=== PATIENT | male | born 1950 | race Caucasian/White ===

== ENCOUNTER 2016-04-30 01:11 | Emergency (ER) ==
[2016-04-30 01:20] VITALS: BP 193/113; TEMP 97; BMI 27.7
[2016-04-30] MEDS ORDERED: LASIX IVP STA (01:23)
[2016-04-30] MEDS ORDERED: SOLU-MEDROL 125 MG IVP STA (01:23)
[2016-04-30] MEDS ORDERED: DUONEB NEB STA (01:24)
[2016-04-30] MEDS ORDERED: DUONEB NEB ONE (01:27)
[2016-04-30 01:36] LABS: BASOPHILS # (AUTO) 0.1 K/uL (0-0.2); BASOPHILS % (AUTO) 1.1 % (0.0-3.0); EOSINOPHILS # (AUTO) 0.5 K/ul (0.0-0.7); EOSINOPHILS % (AUTO) 4.4 % (0.0-7.0); HEMATOCRIT 43.9 % (42.0-52.0); HEMOGLOBIN 14.1 g/dl (14.0-18.0); IMMATURE GRANULOCYTE % (AUTO) 0.4 % (0.0-5.0); LYMPHOCYTES # (AUTO) 2.9 K/uL (0.60-3.4); LYMPHOCYTES % (AUTO) 25.6 (10.0-50.0); MEAN CORPUSCULAR HEMOGLOBIN 31.1 pg (27.0-31.0); MEAN CORPUSCULAR HGB CONC 32.1 (31.8-35.4); MEAN CORPUSCULAR VOLUME 96.7 fl (80.0-94.0); MONOCYTES # (AUTO) 0.9 K/uL (0.4-2.0); MONOCYTES % (AUTO) 7.9 (0-10); NEUTROPHILS # (AUTO) 6.8 K/ul (2.0-6.9); NEUTROPHILS % (AUTO) 60.6; PLATELET COUNT 272 10^3/uL (140-440); RED BLOOD COUNT 4.54 10^6/ul (4.70-6.10); WHITE BLOOD COUNT 11.16 K/ul (4.2-10.2)
[2016-04-30 01:50] LABS: ABG BASE EXCESS 0 (-2.0-2.0); ABG HCO3 25.4 (22.0-26.0); ABG PCO2 42.6 mmHg (35-45); ABG PH 7.384 (7.35-7.45); ABG TCO2 27 (22.0-28.0)
--- NOTE | 2016-04-30 01:57 | ED.PDOC ---
General ED Provider: Dr. ELIANE GUTIERREZ Chief Complaint: Shortness of Air Stated Complaint: Patient is a 65 year old male how comes to the ER with complaints of extreme shortness of breath. He was voicing need for breathing treatment. He admits to eating too much this weekend of festivities. States that he is supposed to be going for dialysis in the morning. Declinie transfer to [facility]. States he still makes urine. Time Seen by Physician: 01:14 Mode of Arrival: Walk-In Information Source: Patient Exam Limitations: No limitations Primary [facility] and Triage Documentation Reviewed and Agree: Yes Respiratory Complaint Exam - Shortness of Air Complaint/Exam Onset/Duration: 1 hour Symptoms Are: Still present Timing: Constant Initial Severity: Moderate Current Severity: Severe Character: Reports: Dyspnea at rest Aggravating: Reports: URI Associated Signs and Symptoms: Reports: Cough, Wheezing History of Healthcare-Acquired Pneumonia: No Pulmonary Embolism Risk Factors: Reports: None Cardiac Risk Factors: Reports: None Pseudomonas Risk Factors: Reports: None Tuberculosis Risk Factors: Reports: None Home Oxygen Use: No Recent Stress Test: No Recent Echo/LV Function: No Respiratory Distress: Severe Stridor Present: No Tracheal Deviation: No Accessory Muscle Use: No Retractions: Not Present Diminished Breath Sounds: No Prolonged Expiratory Phase: No Unable to Speak Full Sentences: No Fatigue: No Leg Swelling: No Serafin's Sign Present: No Grunting Respirations: No Kussmaul Respirations: No Differential Diagnoses: Pulmonary Edema, Pneumonia, URI Quality Indicator For Non-Traumatic Chest Pain/Syncope: EKG Performed Review of Systems - Review Of Systems Constitutional: Reports: No symptoms Eyes: Reports: No symptoms Ears, Nose, Mouth, Throat: Reports: No symptoms Respiratory: Reports: Cough, Short of air, Wheezing Cardiac: Denies: Chest pain GI: Reports: No symptoms : Reports: No symptoms Musculoskeletal: Reports: No symptoms Skin: Reports: No symptoms Neurological: Reports: Anxiety Endocrine: Reports: No symptoms Hematologic/Lymphatic: Reports: No symptoms All Other Systems: Reviewed and Negative Past Medical History - Past Medical History Previously Healthy: Yes Endocrine: Reports: DM 2, Dyslipidemia Cardiovascular: Reports: CAD, OR, Hypertension Respiratory: Reports: Asthma Hematological: Reports: None Gastrointestinal: Reports: None Genitourinary: Reports: CKD (on dialysis ) Neuro/Psych: Reports: None Musculoskeletal: Reports: None Cancer: Reports: None - Surgical History General Surgical History: Reports: Unknown - Family History Family History: Reports: Unknown - Social History Smoking Status: Former smoker Hx Substance Use: No Alcohol Screening: None - Immunizations Tetanus Shot up to Date: Yes Physical Exam - Physical Exam Appearance: Ill-appearing Ill-appearing: Severe Eyes: LORNA, EOMI, Conjunctiva clear Neck: Supple Respiratory: Crackles, Rhonchi, Wheezes Interpretation - Radiology Interpretation Radiology Interpretation By: ED Physician Radiology Results: Positive Exam Interpreted: Other (pulmonary Edema ) - Web Ui Designer Rate: Tachy Rhythm: Sinus Ectopy: None - EKG Interpretation Time of EKG #1: 01:42 Rate: Tachy Rhythm: Sinus Ectopy: None Harriet: NL ST Segment: Normal Interpretation: sinus tachy Re-Evaluation - Re-Evaluation Time of Re-Evaluation: 03:53 Status: Improved - Re-Evaluation Time of Re-Evaluation: 06:00 Status: Improved Vital Signs Stable: Yes Critical Care Note - Critical Care Note Total Time (mins): 40 Course - Course Hematology/Chemistry: 04/30/16 01:34 04/30/16 01:34 Orders, Labs, Meds: Lab Review 04/30/16 04/30/16 01:21 01:34 WBC 11.16 H RBC 4.54 L Hgb 14.1 Hct 43.9 MCV 96.7 H MCH 31.1 H MCHC 32.1 RDW Coeff of Madelyn 17.5 H Plt Count 272 Immature Gran % (Auto) 0.4 Neut % (Auto) 60.6 Lymph % (Auto) 25.6 [place] % (Auto) 7.9 Eos % (Auto) 4.4 Baso % (Auto) 1.1 Immature Gran # (Auto) 0.1 Neut # 6.8 Lymph # 2.9 [place] # 0.9 Eos # 0.5 Baso # 0.1 Puncture Site Lr O2 Saturation 95.0 ABG pH 7.384 ABG pCO2 42.6 ABG pO2 78.0 L ABG HCO3 25.4 ABG Total CO2 27 ABG Base Excess 0 Jesse Test + O2 Delivery Device bnc Oxygen Liter Flow 3.00 FiO2 % 32.0 Sodium 139 Potassium 4.5 Chloride 93 L Carbon Dioxide 28 Anion Gap 22.5 BUN 57 H Creatinine 10.14 H* Estimated GFR (MDRD) 5.00 BUN/Creatinine Ratio 5.62 Glucose 136 H Calcium 9.7 Total Bilirubin 0.54 AST 19 ALT 14 Alkaline Phosphatase 97 Total Creatine Kinase 97 Troponin I 0.1830 B-Natriuretic Peptide 2300 H Total Protein 8.2 H Albumin 4.2 Globulin 4.0 Albumin/Globulin Ratio 1.05 Orders Category Date Time Status ABG DRAW REQUEST Stat CARDIO 04/30/16 01:21 Completed EKG-(ED ONLY) Stat CARDIO 04/30/16 01:21 Completed NEBULIZER TREATMENT Stat CARDIO 04/30/16 01:24 Completed ED INTERFACE CONTROL OFFICER APPLIED .ONCE EMERGENCY 04/30/16 01:21 Active ED IV/MEDIPORT/POWERPORT .ONCE EMERGENCY 04/30/16 01:22 Active ABG Stat LAB 04/30/16 01:21 Completed B-TYPE NATRIURETIC PEPTIDE Stat LAB 04/30/16 01:34 Completed CBC W/ AUTO DIFF Stat LAB 04/30/16 01:34 Completed COMPREHENSIVE METABOLIC PANEL Stat LAB 04/30/16 01:34 Completed CREATINE KINASE Stat LAB 04/30/16 01:34 Completed TROPONIN I Stat LAB 04/30/16 01:34 Completed 0.9 % Sodium Chloride [Saline Flush] MEDS 04/30/16 01:22 Discontinued 1 syr IVF PRN PRN Furosemide [Lasix] MEDS 04/30/16 01:23 Discontinued 60 mg IVP ONCE STA Ipratropium/Albuterol Neb [Duoneb] MEDS 04/30/16 01:27 Discontinued 1 vial NEB .STK-MED ONE Ipratropium/Albuterol Neb [Duoneb] MEDS 04/30/16 01:24 Discontinued 1 vial NEB ONCE STA Methylprednisolone Sod Succ/Pf [Solu-Medrol 125 mg] MEDS 04/30/16 01:23 Discontinued 125 mg IVP ONCE STA CHEST, 1V AP ONLY Stat RADS 04/30/16 01:21 Completed Medications Discontinued Medications Generic Name Dose Route Start Last Admin Trade Name Freq PRN Reason Stop Dose Admin Albuterol/Ipratropium 1 vial 04/30/16 01:24 04/30/16 01:52 Duoneb NEB 04/30/16 01:25 Not Given ONCE STA Furosemide 60 mg 04/30/16 01:23 04/30/16 01:32 Lasix IVP 04/30/16 01:24 60 mg ONCE STA Administration Methylprednisolone Sodium Succinate 125 mg 04/30/16 01:23 04/30/16 01:35 Solu-Medrol 125 Mg IVP 04/30/16 01:24 125 mg ONCE STA Administration Sodium Chloride 1 syr 04/30/16 01:22 04/30/16 01:35 Saline Flush IVF 1 syr PRN PRN Administration To flush IV Vital Signs: Temp Pulse Resp BP Pulse Ox 04/30/16 01:14 97 F L 140 H 32 H 193/113 H 91 L Departure - Departure Time of Disposition: 06:30 Disposition: HOME SELF-CARE Discharge Problem: Pulmonary edema Qualifiers: Chronicity: acute Qualifier Code: (J81.0) Acute pulmonary edema Instructions: Pulmonary Edema (ED) Condition: Stable Pt referred to PMD for follow-up: Yes Additional Instructions: Follow your cardiac diet. Go to dialysis this morning. Allergies/Adverse Reactions: Allergies Penicillins Adverse Reaction (Verified 04/23/16 01:38) Home Medications: Ambulatory Orders Aspirin [Aspirin Chewable] 81 mg PO DAILYWM 07/15/15 Cinacalcet HCl [Sensipar] 90 mg PO BEDTIME 07/15/15 Lidocaine/Prilocaine [Emla Cream] 1 applic TP 3 TIMES PER WEEK 07/15/15 Midodrine HCl [Midodrine] 5 mg PO 3 TIMES PER WEEK 07/15/15 Ondansetron HCl [Zofran] 4 mg PO BID PRN 07/15/15 Pravastatin Sodium [Pravachol] 20 mg PO BEDTIME 07/15/15 Sevelamer Carbonate [Renvela] 1,600 mg PO TID 07/15/15 Trazodone HCl 100 mg PO BEDTIME 07/15/15 Acetaminophen [Tylenol Extra Strength] 1,000 mg PO BID PRN 12/08/15 Clopidogrel Bisulfate [Clopidogrel] 75 mg PO DAILY #90 12/08/15 Omeprazole 20 mg PO DAILY #90 12/08/15 Disposition Discussed With: Patient
[2016-04-30 02:01] LABS: ALBUMIN 4.2 g/dL (3.4-5.0); ALBUMIN/GLOBULIN RATIO 1.05; ANION GAP 22.5; BILIRUBIN,TOTAL 0.54 mg/dL (0.00-1.20); BUN/CREATININE RATIO 5.62; CALCIUM 9.7 mg/dL (8.2-10.2); POTASSIUM 4.5 mmol/L (3.5-5.1); TOTAL PROTEIN 8.2 g/dL (5.8-8.1); TROPONIN I 0.183 ng/ml (0.0000-0.4000)
[2016-04-30 02:03] LABS: CREATININE 10.14 mg/dL (0.60-1.10)
--- NOTE | 2016-04-30 07:06 | DI ---
EXAM: One-view chest HISTORY: Shortness of breath TECHNIQUE: Single frontal view of the chest was obtained. Comparison 04/23/2016. FINDINGS: The heart is stable size. Midline sternotomy wires are seen. Diffuse interstitial opaci ties are seen throughout the lungs. There is no pleural separation. The osseous structures and med iastinal contours are normal. 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 IMPRESSION: Mild worsening of the diffuse interstitial opacities seen throughout the lungs. Findin gs may represent an infectious process versus interstitial edema.
== END 2016-04-30 05:50 | disposition home or self-care (01) ==
LOC: ED 01:11
DX: J81.0 Acute pulmonary edema (principal); N18.9 Chronic kidney disease, unspecified; I10 Essential (primary) hypertension; E11.9 Type 2 diabetes mellitus without complications; E78.5 Hyperlipidemia, unspecified; I25.10 Atherosclerotic heart disease of native coronary artery without angina pectoris; I25.2 Old myocardial infarction; Z99.2 Dependence on renal dialysis; Z79.899 Other long term (current) drug therapy
CPT/HCPCS: 36415; 80053; 82550; 82803; 83880; 84484; 85025; 93005; 93010; 94640; 96374; 96375; 99283

== ENCOUNTER 2016-05-04 03:20 | Outpatient (CLI) ==
[2012-10-18 22:12] VITALS: TEMP 98.2
[2016-05-04 03:53] VITALS: BMI 22.8
== END 2016-05-04 03:21 ==
LOC: AMBL 03:20
PROVIDERS: ATTEND Internal Medicine Geriatric Medicine
DX: R06.02 Shortness of breath (principal); J44.9 Chronic obstructive pulmonary disease, unspecified; R00.0 Tachycardia, unspecified; R03.0 Elevated blood-pressure reading, without diagnosis of hypertension; N19 Unspecified kidney failure; Z99.2 Dependence on renal dialysis; Z86.79 Personal history of other diseases of the circulatory system

== ENCOUNTER 2016-05-04 03:37 | Emergency (ER) | payer OTHER ==
[2016-05-04] MEDS ORDERED: DUONEB NEB ONE (03:40)
[2016-05-04] MEDS ORDERED: LASIX IVP STA (03:40)
[2016-05-04] MEDS ORDERED: SOLU-MEDROL 125 MG IVP STA (03:40)
[2016-05-04] MEDS ORDERED: DUONEB NEB STA (03:40)
[2016-05-04] MEDS ORDERED: LASIX ONE (03:42)
[2016-05-04] MEDS ORDERED: SOLU-MEDROL 125 MG ONE (03:42)
[2016-05-04] MEDS ORDERED: SODIUM CHLORIDE 1,000 ML IV STA (03:45)
--- NOTE | 2016-05-04 03:45 | ED.PDOC ---
General ED Provider: Dr. ELIANE GUTIERREZ Chief Complaint: Shortness of Air Stated Complaint: Patient was sseen recently here two days ago for shortness of breath treated with lasix, steroids and breahing treatments then went to Dialysis that morning. Today he is due for dialysis in a few hours but woke up feeling very short of breath, hypertensive and tachycardic. Brought in by ambulance in severe respiratory distress. saturation was 82 % on Non Rebreathter Time Seen by Physician: 03:40 Mode of Arrival: Ambulance Information Source: EMT Exam Limitations: Clinical condition Primary Care Provider: NICO REYES Seen Within Last 72 Hours for Same Complaint By: ED Nursing and Triage Documentation Reviewed and Agree: Yes Respiratory Complaint Exam - Respiratory Complaint/Exam Onset/Duration: 1 hour Timing: Constant Initial Severity: Severe Current Severity: Severe Location: Chest Character: Reports: Bronchospastic cough Aggravating: Reports: URI, Weather Alleviating: Reports: None Associated Signs and Symptoms: Reports: Rapid breathing, Dyspnea, Wheezing Related History: Reports: Similar episode (two days ago but worse ) Related Surgical History: Reports: Dialysis Cardiac Risk Factors: Reports: Prior SC, Hypertension Pseudomonas Risk Factors: Reports: Chronic Lung Disease Home Oxygen Use: No Recent Stress Test: No Recent Echo/LV Function: No Current Antibiotic Use: No Current Asthma Medication Use: No Respiratory Distress: Severe Stridor Present: No Accessory Muscle Use: Yes Retractions: Diaphragmatic Diminished Breath Sounds: Yes Prolonged Respiration: Inspiratory phase, Expiratory phase Sinus Tenderness: None Grunting Respirations: No Kussmaul Respirations: No Differential Diagnoses: CHF, Pulmonary Edema, Pneumonia, Bronchitis, Bronchospasm, URI Review of Systems - Review Of Systems Constitutional: Reports: Diaphoresis, Sweats Eyes: Reports: No symptoms Ears, Nose, Mouth, Throat: Reports: No symptoms Respiratory: Reports: Cough, Short of air, Wheezing Cardiac: Reports: Irregular heart rate GI: Reports: No symptoms Neurological: Reports: Anxiety, Emotional problems Endocrine: Reports: Excessive sweating All Other Systems: Other (limited due to clinical condition) Past Medical History - Past Medical History Previously Healthy: Yes Endocrine: Reports: DM 2, Dyslipidemia Cardiovascular: Reports: CAD, SC, Hypertension Respiratory: Reports: Asthma Hematological: Reports: None Gastrointestinal: Reports: None Genitourinary: Reports: CKD (on dialysis ) Neuro/Psych: Reports: None Musculoskeletal: Reports: None Cancer: Reports: None - Surgical History General Surgical History: Reports: Unknown - Family History Family History: Reports: Unknown - Social History Smoking Status: Former smoker Hx Substance Use: No Alcohol Screening: None Physical Exam - Physical Exam Appearance: Ill-appearing Ill-appearing: Severe Pain Distress: Moderate Eyes: LORNA, EOMI Neck: Supple Respiratory: Crackles, Wheezes Cardiovascular: Tachycardia GI/: Bowel sounds hypoactive Musculoskeletal: Normal strength Skin: Diaphoretic Neurological: Sensation intact, Alert, Oriented Psychiatric: Anxious Interpretation - Radiology Interpretation Radiology Interpretation By: ED Physician Radiology Results: Positive Exam Interpreted: Portable CXR (Pulmonary Edma, ET tube 2 cm above the ally ) - EKG Interpretation Time of EKG #1: 04:43 Rate: Tachy Rhythm: Other (Atrial Fibrillation) Interpretation: Atrial Firbrillation with RVR Re-Evaluation - Re-Evaluation Time of Re-Evaluation: 05:02 Status: Improved Vital Signs Stable: Yes (blood pressure low Hundreds and pulse 102 irregular ) Lungs: Other (bilateral breath sounds with some rhochi) Neuro: Other (sedated on the vent) Physician Notification - Case Discussed Physician Notified: Dr Guo Time of Notification: 04:50 Critical Care Note - Critical Care Note Total Time (mins): 55 Course - Course Hematology/Chemistry: 05/04/16 04:10 05/04/16 04:10 Orders, Labs, Meds: Lab Review 05/04/16 05/04/16 03:42 04:10 WBC 14.22 H RBC 4.45 L Hgb 13.3 L Hct 44.2 MCV 99.3 H MCH 29.9 MCHC 30.1 L RDW Coeff of Madelyn 17.2 H Plt Count 211 Immature Gran % (Auto) 0.8 Neut % (Auto) 54.4 Lymph % (Auto) 33.5 [place] % (Auto) 5.6 Eos % (Auto) 4.6 Baso % (Auto) 1.1 Immature Gran # (Auto) 0.1 Neut # 7.8 H Lymph # 4.8 H [place] # 0.8 Eos # 0.7 Baso # 0.2 Puncture Site Lr O2 Saturation 99.0 ABG pH 7.353 ABG pCO2 42.9 ABG pO2 169.0 H ABG HCO3 23.9 ABG Total CO2 25 ABG Base Excess -2 Jesse Test + O2 Delivery Device bag Oxygen Liter Flow 15.00 FiO2 % 100.0 Sodium 140 Potassium 4.5 Chloride 95 L Carbon Dioxide 23 Anion Gap 26.5 BUN 59 H Creatinine 8.63 H* Estimated GFR (MDRD) 6.00 BUN/Creatinine Ratio 6.83 Glucose 316 H Calcium 9.0 Total Bilirubin 0.52 AST 28 ALT 25 Alkaline Phosphatase 102 Total Creatine Kinase 76 Troponin I 0.1690 B-Natriuretic Peptide 1821 H Total Protein 6.7 Albumin 3.5 Globulin 3.2 Albumin/Globulin Ratio 1.09 Orders Category Date Time Status ABG DRAW REQUEST Stat CARDIO 05/04/16 03:42 Completed CARDIOPULMONARY RESUSCITATION Stat CARDIO 05/04/16 06:39 Completed EKG-(ED ONLY) Stat CARDIO 05/04/16 03:40 Completed NEBULIZER TREATMENT Stat CARDIO 05/04/16 03:41 Completed VENTILATOR Routine CARDIO 05/04/16 04:40 Completed ED SITE ACQUISITION SPECIALIST APPLIED .ONCE EMERGENCY 05/04/16 03:40 Active ED IV/MEDIPORT/POWERPORT .ONCE EMERGENCY 05/04/16 03:40 Active ABG Stat LAB 05/04/16 03:42 Completed B-TYPE NATRIURETIC PEPTIDE Stat LAB 05/04/16 04:10 Completed CBC W/ AUTO DIFF Stat LAB 05/04/16 04:10 Completed COMPREHENSIVE METABOLIC PANEL Stat LAB 05/04/16 04:10 Completed CREATINE KINASE Stat LAB 05/04/16 04:10 Completed TROPONIN I Stat LAB 05/04/16 04:10 Completed 0.9 % Sodium Chloride [Saline Flush] MEDS 05/04/16 03:40 Discontinued 1 syr IVF PRN PRN Atropine Sulfate Inj [Atropine Sulfate Pfs] MEDS 05/04/16 03:55 Discontinued 0.25 mg IVP ONCE STA Epinephrine [Epinephrine 1:10,000 Syringe] MEDS 05/04/16 04:33 Discontinued 1 mg IV ONCE STA Epinephrine [Epinephrine 1:10,000 Syringe] MEDS 05/04/16 04:38 Discontinued 1 mg IV ONCE STA Fentanyl Amp [Sublimaze] MEDS 05/04/16 04:42 Discontinued 50 mcg IVP ONCE STA Fentanyl Amp [Sublimaze] MEDS 05/04/16 05:27 Discontinued 50 mcg IVP ONCE STA Furosemide [Lasix] MEDS 05/04/16 03:42 Discontinued 100 mg .ROUTE .STK-MED ONE Furosemide [Lasix] MEDS 05/04/16 03:40 Discontinued 100 mg IVP ONCE STA Ipratropium/Albuterol Neb [Duoneb] MEDS 05/04/16 03:40 Discontinued 1 vial NEB .STK-MED ONE Ipratropium/Albuterol Neb [Duoneb] MEDS 05/04/16 03:40 Discontinued 1 vial NEB ONCE STA Methylprednisolone Sod Succ/Pf [Solu-Medrol 125 mg] MEDS 05/04/16 03:42 Discontinued 125 mg .ROUTE .STK-MED ONE Methylprednisolone Sod Succ/Pf [Solu-Medrol 125 mg] MEDS 05/04/16 03:40 Discontinued 125 mg IVP ONCE STA Midazolam HCl Inj [Versed] MEDS 05/04/16 03:49 Discontinued 5 mg .ROUTE .STK-MED ONE Midazolam HCl Inj [Versed] MEDS 05/04/16 03:50 Discontinued 5 mg .ROUTE .STK-MED ONE Midazolam HCl Inj [Versed] MEDS 05/04/16 04:33 Discontinued 5 mg IVP ONCE STA Sodium Bicarb 7.5% [Sodium Bicarbonate 7.5%] MEDS 05/04/16 04:33 Discontinued 44.6 meq IVP ONCE STA Sodium Chloride 0.9% [Sodium Chloride] 1,000 ml MEDS 05/04/16 03:45 Discontinued IV 30 mls/hr Succinylcholine Chloride [Anectine] MEDS 05/04/16 04:33 Discontinued 100 mg IVP ONCE STA Succinylcholine Chloride [Anectine] MEDS 05/04/16 03:49 Discontinued 20 mg .ROUTE .STK-MED ONE Vecuronium Ethel [Norcuron] MEDS 05/04/16 04:33 Discontinued 1 mg IVP ONCE STA Vecuronium Ethel [Norcuron] MEDS 05/04/16 04:39 Discontinued 1 mg IVP ONCE STA Vecuronium Ethel [Norcuron] MEDS 05/04/16 05:00 Discontinued 10 mg .ROUTE .STK-MED ONE CHEST, 1V AP ONLY Stat RADS 05/04/16 03:40 Completed Medications Discontinued Medications Generic Name Dose Route Start Last Admin Trade Name Freq PRN Reason Stop Dose Admin Albuterol/Ipratropium 1 vial 05/04/16 03:40 05/04/16 05:03 Duoneb NEB 05/04/16 03:41 Not Given ONCE STA Atropine Sulfate 0.25 mg 05/04/16 03:55 05/04/16 05:52 Atropine Sulfate Pfs IVP 05/04/16 03:56 0.25 mg ONCE STA Administration Epinephrine HCl 1 mg 05/04/16 04:33 05/04/16 04:08 Epinephrine 1:10,000 Syringe IV 05/04/16 04:34 1 mg ONCE STA Administration Epinephrine HCl 1 mg 05/04/16 04:38 05/04/16 04:03 Epinephrine 1:10,000 Syringe IV 05/04/16 04:39 1 mg ONCE STA Administration Fentanyl Citrate 50 mcg 05/04/16 04:42 05/04/16 05:02 Sublimaze IVP 05/04/16 04:43 50 mcg ONCE STA Administration Fentanyl Citrate 50 mcg 05/04/16 05:27 05/04/16 05:32 Sublimaze IVP 05/04/16 05:28 50 mcg ONCE STA Administration Furosemide 100 mg 05/04/16 03:40 05/04/16 03:48 Lasix IVP 05/04/16 03:41 100 mg ONCE STA Administration Sodium Chloride 1,000 mls @ 30 mls/hr 05/04/16 03:45 05/04/16 03:45 Sodium Chloride IV 05/05/16 13:04 30 mls/hr .[id number] STA Administration Methylprednisolone Sodium Succinate 125 mg 05/04/16 03:40 05/04/16 03:46 Solu-Medrol 125 Mg IVP 05/04/16 03:41 125 mg ONCE STA Administration Midazolam HCl 5 mg 05/04/16 04:33 05/04/16 03:49 Versed IVP 05/04/16 04:34 5 mg ONCE STA Administration Sodium Bicarbonate 44.6 meq 05/04/16 04:33 05/04/16 04:05 Sodium Bicarbonate 7.5% IVP 05/04/16 04:34 44.6 meq ONCE STA Administration Sodium Chloride 1 syr 05/04/16 03:40 Saline Flush IVF PRN PRN To flush IV Succinylcholine Chloride 100 mg 05/04/16 04:33 05/04/16 04:51 Anectine IVP 05/04/16 04:34 100 mg ONCE STA Administration Vecuronium Ethel 1 mg 05/04/16 04:33 05/04/16 04:28 Norcuron IVP 05/04/16 04:34 1 mg ONCE STA Administration Vecuronium Ethel 1 mg 05/04/16 04:39 05/04/16 04:38 Norcuron IVP 05/04/16 04:40 1 mg ONCE STA Administration Vital Signs: Temp Pulse Resp BP Pulse Ox 05/04/16 04:43 169 H 21 245/144 H 05/04/16 04:32 12 05/04/16 03:38 95.8 F L 153 H 40 H 216/150 H 85 L Departure - Departure Time of Disposition: 05:55 Disposition: TSF SHORT-TRM HOSP Discharge Problem: Respiratory failure requiring intubation Pulmonary edema Qualifiers: Chronicity: acute Qualifier Code: (J81.0) Acute pulmonary edema Condition: Stable Pt referred to PMD for follow-up: No (transfred ) Allergies/Adverse Reactions: Allergies Penicillins Adverse Reaction (Verified 04/23/16 01:38) Home Medications: Ambulatory Orders Aspirin [Aspirin Chewable] 81 mg PO DAILYWM 07/15/15 Cinacalcet HCl [Sensipar] 90 mg PO BEDTIME 07/15/15 Lidocaine/Prilocaine [Emla Cream] 1 applic TP 3 TIMES PER WEEK 07/15/15 Midodrine HCl [Midodrine] 5 mg PO 3 TIMES PER WEEK 07/15/15 Ondansetron HCl [Zofran] 4 mg PO BID PRN 07/15/15 Pravastatin Sodium [Pravachol] 20 mg PO BEDTIME 07/15/15 Sevelamer Carbonate [Renvela] 1,600 mg PO TID 07/15/15 Trazodone HCl 100 mg PO BEDTIME 07/15/15 Acetaminophen [Tylenol Extra Strength] 1,000 mg PO BID PRN 12/08/15 Clopidogrel Bisulfate [Clopidogrel] 75 mg PO DAILY #90 12/08/15 Omeprazole 20 mg PO DAILY #90 12/08/15 Pt. Stabilized Within Hospital's Capabilities/Transferred To: [facility] Transfer Form Completed: Yes Disposition Discussed With: Family Cardiac Resuscitation - Cardiac Resuscitation Onset/Duration: Unknown Witnessed Arrest: No Airway Prehospital Findings: Reports: Patent Breathing Prehospital Findings: Reports: Respiratory distress Circulation/Rhythm Prehospital Findings: Reports: Pulses present, Sinus Tachycardia Disability/Neurological Prehospital Findings: Reports: Responsive Breathing Prehospital Intervention: Reports: Oxygen Airway ED Findings: Patent Breathing ED Findings: Present: Respiratory distress Circulation/Rhythm ED Findings: Present: Sinus Tachycardia Disability/Neurological ED Findings: Present: Responsive Airway ED Intervention: Chin lift, Jaw thrust Breathing ED Intervention: Bag-valve mask Circulation/Rhythm ED Intervention: Chest compressions, Epinephrine (x 2 with good response after the secound ), Atropine (0.25mg initailly given for bradycaria.) Breathing ED Response: ETT in airway Circulation/Rhythm ED Response: Present: PEA Right Pupil: Reactive Left Pupil: Reactive EMS/Code Sheet Reviewed: Yes Patient is a DNR: No Patient Has a Living Will: No Resuscitation Successful: Yes (With good pulse Blood pressure and skin perfusion improved for marina to pink) Differential Diagnoses: Pulmonary Edema, Respiratory Failure Quality Indicator For Non-Traumatic Chest Pain/Syncope: EKG Performed
[2016-05-04] MEDS ORDERED: VERSED ONE ×2 (03:49→03:50)
[2016-05-04] MEDS ORDERED: ANECTINE ONE (03:49)
[2016-05-04 03:53] VITALS: TEMP 95.8; BMI 22.8
[2016-05-04] MEDS ORDERED: ATROPINE SULFATE PFS IVP STA (03:55)
[2016-05-04 04:20] LABS: BASOPHILS # (AUTO) 0.2 K/uL (0-0.2); BASOPHILS % (AUTO) 1.1 % (0.0-3.0); EOSINOPHILS # (AUTO) 0.7 K/ul (0.0-0.7); EOSINOPHILS % (AUTO) 4.6 % (0.0-7.0); HEMATOCRIT 44.2 % (42.0-52.0); HEMOGLOBIN 13.3 g/dl (14.0-18.0); IMMATURE GRANULOCYTE % (AUTO) 0.8 % (0.0-5.0); LYMPHOCYTES # (AUTO) 4.8 K/uL (0.60-3.4); LYMPHOCYTES % (AUTO) 33.5 (10.0-50.0); MEAN CORPUSCULAR HEMOGLOBIN 29.9 pg (27.0-31.0); MEAN CORPUSCULAR HGB CONC 30.1 (31.8-35.4); MEAN CORPUSCULAR VOLUME 99.3 fl (80.0-94.0); MONOCYTES # (AUTO) 0.8 K/uL (0.4-2.0); MONOCYTES % (AUTO) 5.6 (0-10); NEUTROPHILS # (AUTO) 7.8 K/ul (2.0-6.9); NEUTROPHILS % (AUTO) 54.4; PLATELET COUNT 211 10^3/uL (140-440); RED BLOOD COUNT 4.45 10^6/ul (4.70-6.10); WHITE BLOOD COUNT 14.22 K/ul (4.2-10.2)
[2016-05-04 04:23] LABS: ABG BASE EXCESS -2 (-2.0-2.0); ABG HCO3 23.9 (22.0-26.0); ABG PCO2 42.9 mmHg (35-45); ABG PH 7.353 (7.35-7.45); ABG TCO2 25 (22.0-28.0)
[2016-05-04] MEDS ORDERED: EPINEPHRINE 1:10,000 SYRINGE IV STA ×2 (04:33→04:38)
[2016-05-04] MEDS ORDERED: ANECTINE IVP STA (04:33)
[2016-05-04] MEDS ORDERED: NORCURON IVP STA ×2 (04:33→04:39)
[2016-05-04] MEDS ORDERED: VERSED IVP STA (04:33)
[2016-05-04] MEDS ORDERED: SODIUM BICARBONATE 7.5% IVP STA (04:33)
[2016-05-04] MEDS ORDERED: SUBLIMAZE IVP STA ×2 (04:42→05:27)
[2016-05-04 04:45] VITALS: BP 245/144
[2016-05-04 04:45] LABS: ALBUMIN 3.5 g/dL (3.4-5.0); ALBUMIN/GLOBULIN RATIO 1.09; ANION GAP 26.5; BILIRUBIN,TOTAL 0.52 mg/dL (0.00-1.20); BUN/CREATININE RATIO 6.83; POTASSIUM 4.5 mmol/L (3.5-5.1); TOTAL PROTEIN 6.7 g/dL (5.8-8.1); TROPONIN I 0.169 ng/ml (0.0000-0.4000)
[2016-05-04 04:47] LABS: CREATININE 8.63 mg/dL (0.60-1.10)
[2016-05-04] MEDS ORDERED: NORCURON ONE (05:00)
[2016-05-04] MEDS ORDERED: CARDIZEM INJ IVP STA (05:13)
--- NOTE | 2016-05-04 05:21 | DI ---
EXAM: Portable chest HISTORY: Respiratory distress tube placement COMPARISON: Single-view chest 04/30/2016 FINDINGS: The cardiomediastinal silhouette is stable. There are sternal wire sutures. The tip of an endotracheal tube is in good position above the sree.. Diffuse interstitial opacities are agai n noted which has shown mild worsening within the right lung and mild improvement in the left lung. IMPRESSION: Satisfactory appearing endotracheal tube. Stable cardiomediastinal silhouette with interstitial opacities right greater than left
[2016-05-04] MEDS ORDERED: CARDIZEM INJ 125 MG in SODIUM CHLORIDE 100 ML IV SCH (05:30)
== END 2016-05-04 05:40 | disposition short-term general hospital (02) ==
LOC: ED 03:37
DX: J96.00 Acute respiratory failure, unspecified whether with hypoxia or hypercapnia (principal); J81.0 Acute pulmonary edema; R00.0 Tachycardia, unspecified; I48.91 Unspecified atrial fibrillation; I25.10 Atherosclerotic heart disease of native coronary artery without angina pectoris; I10 Essential (primary) hypertension; I25.2 Old myocardial infarction; E11.9 Type 2 diabetes mellitus without complications; E78.5 Hyperlipidemia, unspecified; N18.9 Chronic kidney disease, unspecified; Z99.2 Dependence on renal dialysis; Z79.899 Other long term (current) drug therapy; Z87.891 Personal history of nicotine dependence
CPT/HCPCS: 36415; 80053; 82550; 82803; 83880; 84484; 85025; 92950; 93005; 93010; 94640; 96374; 96375; 99285; 99291; 99292

== ENCOUNTER 2016-05-04 05:38 | Outpatient (CLI) ==
[2012-10-18 22:12] VITALS: TEMP 98.2
[2016-05-04 03:53] VITALS: BMI 22.8
== END 2016-05-04 05:39 ==
LOC: AMBL 05:38
PROVIDERS: ATTEND Internal Medicine Geriatric Medicine
DX: J96.90 Respiratory failure, unspecified, unspecified whether with hypoxia or hypercapnia (principal); J44.9 Chronic obstructive pulmonary disease, unspecified; I50.9 Heart failure, unspecified; N19 Unspecified kidney failure; Z99.2 Dependence on renal dialysis; R06.02 Shortness of breath; R00.0 Tachycardia, unspecified; R03.0 Elevated blood-pressure reading, without diagnosis of hypertension; Z86.79 Personal history of other diseases of the circulatory system